=== PATIENT | female | born 1980 | race Caucasian/White ===

== ENCOUNTER 2020-04-19 08:39 | Emergency (ER) | payer SELFPAY ==
--- NOTE | 2020-04-19 09:14 | EDM.PDOC ---
ED HPI GENERAL MEDICAL PROBLEM - General Chief Complaint: Chest Pain Stated Complaint: CHEST PAIN GOES DOWN LEFT ARM Time Seen by Provider: 04/19/20 08:47 Source of Information: Reports: Patient History Limitations: Reports: No Limitations - History of Present Illness INITIAL COMMENTS - FREE TEXT/NARRATIVE: Patient notes atraumatic brief twinges of left anterior nonradiating chest pain lasting a second or two, at times up to a minute, beginning last night at rest 11 hours ago at home. This was preceded by migraine headache yesterday which is resolved. Patient today has noted over the last few hours associated feelings of tingling in her left cheek. 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 This is an contraindication to the triage nurse note. Patient's pain is not tearing or ripping Did not begin acutely. was not maximal at onset. Has not migrated. Pain is slightly worse if she breathes. Is unrelated to activity exertion or swallowing. Patient's had no runny nose, sore throat, cough, change in taste or smell. No diarrhea. No cold exposures. Cardiac risk factors: Grandfather had heart disease in his 50s. Parents and first degree relatives are otherwise healthy. Patient has family that works for EMS and recommended checked out today. Patient denies any history of DVT or PE. No recent surgeries, prolonged travel, calf pain, immobilization or hypercoagulable state. Patient does have an IUD in place has not had her period for 10 years. Patient remotely reports elevated borderline blood sugar. She denies hypertension, hypercholesterolemia, cocaine use. No history of coronary disease. Onset Date: 04/18/20 Location: Reports: Chest Quality: Reports: Other (t) Severity: Mild Improves with: Reports: None Worsens with: Reports: Breathing. Denies: Eating, Movement Context: Reports: Other Associated Symptoms: Denies: Cough, Fever/Chills, Shortness of Breath, Syncope, Weakness - Related Data Allergies Allergy/AdvReac Type Severity Reaction Status Date / Time Penicillins Allergy Rash Verified 04/19/20 08:55 Home Meds: Home Meds NK [No Known Home Meds] 04/19/20 [History] Past Medical History Cardiovascular History: Reports: None. Denies: Afib, Aneurysm, Angina, Blood Clots/VTE/DVT, CAD, Heart Failure, Heart Murmur, High Cholesterol, Hypertension, [place], SOB on Exertion, Syncope Respiratory History: Reports: None Gastrointestinal History: Reports: Irritable Bowel Syndrome DIAMOND PICKER History: Reports: LMP (Approximate): Other (See Below) (has IUD, last menses 10 years ago.) Psychiatric History: Reports: Anxiety - Past Surgical History HEENT Surgical History: Reports: Adenoidectomy, Tonsillectomy GI Surgical History: Reports: Hernia Repair/Other Female Surgical History: Reports: Section Social & Family History - Family History Cardiac: Reports: CAD (CAD in grandfather with early TX, no 1st degree relative with early CAD, TAD or dvt/PE). Denies: Aneurysm, Blood Clots/VTE/DVT, Cardiomyopathy Respiratory: Reports: None Neurological: Reports: CVA - Tobacco Use Tobacco Use Status *Q: Current Every Day Tobacco User Years of Tobacco use: 20 Packs/Tins Daily: 0.5 - Recreational Drug Use Recreational Drug Type: Reports: Marijuana/Hashish Recreational Drug Use Frequency: Weekly - Living Situation & Occupation Living situation: Reports: (here with .) ED ROS GENERAL - Review of Systems Review Of Systems: See Below Constitutional: Denies: Fever, Chills, Weakness, Weight Gain HEENT: Reports: No Symptoms Respiratory: Reports: Wheezing. Denies: Cough, Sputum, Hemoptysis Cardiovascular: Reports: Chest Pain, Palpitations. Denies: Claudication, Edema, Syncope Endocrine: Reports: No Symptoms GI/Abdominal: Reports: No Symptoms : Reports: No Symptoms Musculoskeletal: Reports: Back Pain, Leg Pain Skin: Reports: No Symptoms Neurological: Reports: Other (hand tingling when milking cows for years. ) Psychiatric: Reports: No Symptoms Hematologic/Lymphatic: Reports: No Symptoms, Easy Bruising Immunologic: Reports: No Symptoms Free Text/Narrative/Comment: no covid sx. ED EXAM, GENERAL - Physical Exam Exam: See Below Exam Limited By: No Limitations General Appearance: Alert, No Apparent Distress Eye Exam: Left Eye: Normal Inspection Ears: Normal External Exam Nose: Normal Inspection Throat/Mouth: Normal Inspection Head: Normocephalic Neck: Normal Inspection, Full Range of Motion. No: Carotid Bruit, Lymphadenopathy (R) Respiratory/Chest: No Respiratory Distress, Lungs Clear, Normal Breath Sounds, No Accessory Muscle Use, Chest Non-Tender Cardiovascular: Normal Peripheral Pulses, Regular Rate, Rhythm, No Edema, No Gallop, No JVD, No Murmur, No Rub. No: Friction Rub Peripheral Pulses: 2+: Radial (L), Radial (R) GI/Abdominal: Normal Bowel Sounds, Soft, Non-Tender, No Organomegaly, No Distention, No Mass Back Exam: Full Range of Motion Extremities: Normal Inspection, Normal Range of Motion, Non-Tender, No Pedal Edema, Normal Capillary Refill Neurological: Alert, Oriented, Normal Cognition, Normal Gait, No Motor/Sensory Deficits Psychiatric: Normal Affect, Normal Mood Skin Exam: Warm, Dry, Normal Color, No Rash. No: Cool, Cyanosis Lymphatic: No Adenopathy #1 Interpretation EKG Date: 04/19/20 Time: 09:11 Rhythm: NSR [place]: Normal P-Wave: Present QRS: Normal ST-T: Normal QT: Normal Comparison: NA - No Prior EKG Course - Vital Signs Text/Narrative:: Patient presents with atypical chest pain lasting few seconds left chest. Low PE risk based on history and exam. D-dimer negative. Patient symptoms been p resent for over greater than 8 hours and atypical with negative D-dimer making ACS extremely unlikely. She does have risk factors for CAD but her symptoms are not suggestive of ACS. Also not acute onset tearing, or ripping or suggestive thoracic or dissection. This is not pericarditis, myocarditis or esophageal rupture. There is no evidence of pneumonia, pneumothorax and her symptoms are not suggestive esophageal rupture. Patient is medically stable. In regards to her history of migraines and hand numbness this appears more chronic problem and not acute. Close follow primary care physician as appropriate. Return if worse, as discussed or progressive chest pain, diaphoresis, vomiting, bloody or black stools. Please see discharge instructions for a table chest pain/palpitations. Finally of note monitored in the ER showed no runs of ectopy or dysrhythmia. Last Recorded V/S: Last Vital Signs Temp 36.6 C 04/19/20 08:55 Pulse 78 04/19/20 08:55 Resp 12 04/19/20 10:00 BP 121/61 04/19/20 10:00 Pulse Ox 98 04/19/20 10:00 - Orders/Labs/Meds Orders: Active Orders 24 hr Category Date Time Status Saline Lock Insert [OM.PC] Stat Oth 04/19/20 09:28 Ordered EKG 12 Lead [EK] Stat Ther 04/19/20 08:53 Ordered Labs: Laboratory Tests 04/19/20 04/19/20 04/19/20 Range/Units 09:39 09:39 09:39 WBC 9.5 (4.5-11.0) K/uL RBC 5.22 (3.30-5.50) M/uL Hgb 15.8 H (12.0-15.0) g/dL Hct 48.1 H (36.0-48.0) % MCV 92 (80-98) fL MCH 30 (27-31) pg MCHC 33 (32-36) % Plt Count 287 (150-400) K/uL Neut % (Auto) 70 H (36-66) % Lymph % (Auto) 21 L (24-44) % [place] % (Auto) 7 H (2-6) % Eos % (Auto) 3 (2-4) % Baso % (Auto) 1 (0-1) % D-Dimer, Quantitative 363.14 (0.0-500.0) ng/mL Sodium (140-148) mmol/L Potassium (3.6-5.2) mmol/L Chloride (100-108) mmol/L Carbon Dioxide (21-32) mmol/L Anion Gap (5.0-14.0) mmol/L BUN (7-18) mg/dL Creatinine (0.6-1.0) mg/dL Est Cr Clr Drug Dosing mL/min Estimated GFR (MDRD) (>60) Glucose (74-106) mg/dL Calcium (8.5-10.1) mg/dL Troponin I < 0.017 (0.000-0.056) ng/mL HCG, Qual 04/19/20 04/19/20 Range/Units 09:39 09:40 WBC (4.5-11.0) K/uL RBC (3.30-5.50) M/uL Hgb (12.0-15.0) g/dL Hct (36.0-48.0) % MCV (80-98) fL MCH (27-31) pg MCHC (32-36) % Plt Count (150-400) K/uL Neut % (Auto) (36-66) % Lymph % (Auto) (24-44) % [place] % (Auto) (2-6) % Eos % (Auto) (2-4) % Baso % (Auto) (0-1) % D-Dimer, Quantitative (0.0-500.0) ng/mL Sodium 141 (140-148) mmol/L Potassium 4.1 (3.6-5.2) mmol/L Chloride 106 (100-108) mmol/L Carbon Dioxide 24 (21-32) mmol/L Anion Gap 10.8 (5.0-14.0) mmol/L BUN 11 (7-18) mg/dL Creatinine 0.9 (0.6-1.0) mg/dL Est Cr Clr Drug Dosing 68.73 mL/min Estimated GFR (MDRD) > 60 (>60) Glucose 121 H (74-106) mg/dL Calcium 9.2 (8.5-10.1) mg/dL Troponin I (0.000-0.056) ng/mL HCG, Qual Negative Meds: Medications Discontinued Medications Generic Name Dose Route Start Last Admin Trade Name Freq PRN Reason Stop Dose Admin Sodium Chloride 10 ml 04/19/20 09:27 04/19/20 10:12 Saline Flush FLUSH 10 ml ASDIRECTED PRN Administration Keep Vein Open Departure - Departure Time of Disposition: 11:12 Disposition: Home, Self-Care 01 Clinical Impression: Atypical chest pain Instructions: Nonspecific Chest Pain, Adult, [id number] Referrals: PCP,None [Primary Care Provider] - Forms: ED Department Discharge Additional Instructions: Your work-up today for atypical chest pain is reassuring. There is no signs of serious problems, your chest x-ray, laboratory studies, EKG, monitor worker and screening test for blood clots is negative and reassuring. At times a single ED visit cannot identify other medical problems. I do recommend close follow with your primary physician. In the meantime please return the emergency room if develop severe chest pain, persistent shortness of breath, vomiting, bloody or black stools. Return if arm weakness. Sepsis Event Note (ED) - Evaluation Sepsis Screening Result: No Definite Risk - Focused Exam Vital Signs: Vital Signs Temp Pulse Resp BP Pulse Ox 04/19/20 10:00 12 121/61 98 04/19/20 08:55 36.6 C 78 16 135/79 98 - My Orders Last 24 Hours: My Active Orders 04/19/20 08:53 EKG 12 Lead [EK] Stat 04/19/20 09:28 Saline Lock Insert [OM.PC] Stat - Assessment/Plan Last 24 Hours: My Active Orders 04/19/20 08:53 EKG 12 Lead [EK] Stat 04/19/20 09:28 Saline Lock Insert [OM.PC] Stat
[2020-04-19] MEDS ORDERED: Sodium Chloride 0.9% 10 ML Syringe FLUSH PRN (09:27)
--- NOTE | 2020-04-19 10:30 | CR ---
CHEST: Portable 04/19/2020 9: 59 AM CLINICAL HISTORY:Chest pain COMPARISON:None FINDINGS: The heart size, pulmonary vascularity and hilar structures are normal. No infiltrate effusion or pneumothorax is seen. IMPRESSION: No acute cardiopulmonary process.
== END 2020-04-19 11:28 | disposition home or self-care (01) ==
LOC: JP.ED 08:39
DX: R07.89 Other chest pain (principal); Z88.0 Allergy status to penicillin; Z72.0 Tobacco use
CPT/HCPCS: 36415; 71045; 71045-26; 80048; 84484; 84703; 85025; 85379; 93005; 99284; 99285-25

== ENCOUNTER 2024-11-20 08:27 | Observation (INO) | payer MEDICAID ==
[2024-11-20] MEDS ORDERED: Nitroglycerin 0.4 MG Tab.SL SL PRN (09:07)
[2024-11-20 09:15] LABS: BASOPHILS ABSOLUTE AUTO 0.19 K/uL (0.00-0.10); BASOPHILS PERCENT AUTO 1.2 % (0.1-1.3); EOSINOPHILS ABSOLUTE AUTO 0.51 K/uL (0.00-0.40); EOSINOPHILS PERCENT AUTO 3.1 % (0.0-5.4); IMMATURE GRAN ABSOLUTE AUTO 0.15 K/uL (0.00-0.23); IMMATURE GRAN PERCENT AUTO 0.9 % (0.0-0.7); LYMPHOCYTES ABSOLUTE AUTO 3.81 K/uL (0.8-3.3); LYMPHOCYTES PERCENT AUTO 23.4 % (11.4-47.7); MONOCYTES ABSOLUTE AUTO 0.96 K/uL (0.20-0.90); MONOCYTES PERCENT AUTO 5.9 % (3.3-12.6); NEUTROPHILS ABSOLUTE AUTO 10.67 K/uL (1.0-7.6); NEUTROPHILS PERCENT AUTO 65.5 % (40.0-78.1); PLATELET COUNT,PLT 420 K/uL (130-375); RED BLOOD CELL COUNT 4.51 M/uL (3.77-5.24); WHITE BLOOD CELL COUNT,WBC 16.3 K/uL (3.2-11.0)
[2024-11-20] MEDS: Sodium Chloride 0.9% 10 ML Syringe FLUSH PRN (09:17)
[2024-11-20 09:41] LABS: A/G RATIO 0.9 (1.2-2.2); ALANINE AMINOTRANSFERASE,ALT 69 U/L (12-78); ASPARTATE AMNIOTRANSFERASE,AST 41 U/L (15-37); BILIRUBIN TOTAL 0.4 mg/dL (0.2-1.0); BLOOD UREA NITROGEN,BUN 11 mg/dL (7-18); CARBON DIOXIDE,CO2 22 mmol/L (21-32); CHLORIDE,CL 107 mmol/L (100-108); CREATININE 1.1 mg/dL (0.6-1.0); EST CRCL DRUG DOSING (CG) 51.62 mL/min; ESTIMATED GFR 64 mL/min (>60); GLUCOSE RANDOM 249 mg/dL (74-106); POTASSIUM,K 4.0 mmol/L (3.6-5.2); PROTEIN TOTAL,TP 7.1 g/dL (6.4-8.2); SODIUM,NA 143 mmol/L (140-148); TROPONIN I HIGH SENSITIVITY 4.1 pg/mL (<=60.3)
[2024-11-20] MEDS: Iopamidol 612 MG/ML 100 ML Bottle IV PRN (10:35)
[2024-11-20] MEDS: Sodium Chloride 0.9% 10 ML Syringe FLUSH ONE (10:35)
[2024-11-20 10:56] LABS: LACTIC ACID 3.4 mmol/L (0.4-2.0)
[2024-11-20] MEDS ORDERED: Ondansetron 4 MG/2 ML SDV IV PRN (11:40)
[2024-11-20] MEDS: Ciprofloxacin in D5W 400 MG in Premix Bag 1 BAG IV SCH ×2 (12:11→23:59)
[2024-11-20 13:03] LABS: BASOPHILS ABSOLUTE AUTO 0.12 K/uL (0.00-0.10); BASOPHILS PERCENT AUTO 0.4 % (0.1-1.3); EOSINOPHILS ABSOLUTE AUTO 0.03 K/uL (0.00-0.40); EOSINOPHILS PERCENT AUTO 0.1 % (0.0-5.4); IMMATURE GRAN ABSOLUTE AUTO 0.39 K/uL (0.00-0.23); IMMATURE GRAN PERCENT AUTO 1.3 % (0.0-0.7); LYMPHOCYTES ABSOLUTE AUTO 2.19 K/uL (0.8-3.3); LYMPHOCYTES PERCENT AUTO 7.3 % (11.4-47.7); MONOCYTES ABSOLUTE AUTO 1.32 K/uL (0.20-0.90); MONOCYTES PERCENT AUTO 4.4 % (3.3-12.6); NEUTROPHILS ABSOLUTE AUTO 26.00 K/uL (1.0-7.6); NEUTROPHILS PERCENT AUTO 86.5 % (40.0-78.1); PLATELET COUNT,PLT 343 K/uL (130-375); RED BLOOD CELL COUNT 3.95 M/uL (3.77-5.24)
[2024-11-20 13:05] LABS: WHITE BLOOD CELL COUNT,WBC 30.1 K/uL (3.2-11.0)
[2024-11-20 18:32] LABS: APPEARANCE,URINE CLEAR (CLEAR); GLUCOSE,URINE NEGATIVE (NEGATIVE); OCCULT BLOOD,URINE NEGATIVE (NEGATIVE)
[2024-11-20 19:07] LABS: SQUAMOUS EPITHELIAL CELLS,UR OCCASIONAL /HPF
[2024-11-21 05:59] LABS: BASOPHILS ABSOLUTE AUTO 0.08 K/uL (0.00-0.10); BASOPHILS PERCENT AUTO 0.6 % (0.1-1.3); EOSINOPHILS ABSOLUTE AUTO 0.19 K/uL (0.00-0.40); EOSINOPHILS PERCENT AUTO 1.3 % (0.0-5.4); IMMATURE GRAN ABSOLUTE AUTO 0.10 K/uL (0.00-0.23); IMMATURE GRAN PERCENT AUTO 0.7 % (0.0-0.7); LYMPHOCYTES ABSOLUTE AUTO 2.84 K/uL (0.8-3.3); LYMPHOCYTES PERCENT AUTO 19.8 % (11.4-47.7); MONOCYTES ABSOLUTE AUTO 1.01 K/uL (0.20-0.90); MONOCYTES PERCENT AUTO 7.0 % (3.3-12.6); NEUTROPHILS ABSOLUTE AUTO 10.12 K/uL (1.0-7.6); NEUTROPHILS PERCENT AUTO 70.6 % (40.0-78.1); PLATELET COUNT,PLT 244 K/uL (130-375); RED BLOOD CELL COUNT 3.17 M/uL (3.77-5.24); WHITE BLOOD CELL COUNT,WBC 14.3 K/uL (3.2-11.0)
[2024-11-21 06:17] LABS: BLOOD UREA NITROGEN,BUN 8.0 mg/dL (7-18); CARBON DIOXIDE,CO2 24.0 mmol/L (21-32); CHLORIDE,CL 109.0 mmol/L (100-108); CREATININE 0.6 mg/dL (0.6-1.0); EST CRCL DRUG DOSING (CG) 94.63 mL/min; ESTIMATED GFR 113.0 mL/min (>60); GLUCOSE RANDOM 146.0 mg/dL (74-106); POTASSIUM,K 4.2 mmol/L (3.6-5.2); SODIUM,NA 142.0 mmol/L (140-148)
== END 2024-11-21 12:34 | disposition home or self-care (01) ==
LOC: JP.ED 08:27 → JP.ICU 11:36
PROVIDERS: ADMIT Surgery; ATTEND Surgery
DX: K25.9 Gastric ulcer, unspecified as acute or chronic, without hemorrhage or perforation (principal); I48.91 Unspecified atrial fibrillation; I11.0 Hypertensive heart disease with heart failure; I50.9 Heart failure, unspecified; I25.10 Atherosclerotic heart disease of native coronary artery without angina pectoris; E87.20 Acidosis, unspecified; D72.829 Elevated white blood cell count, unspecified; R73.9 Hyperglycemia, unspecified; E66.01 Morbid (severe) obesity due to excess calories; Z68.42 Body mass index [BMI] 45.0-49.9, adult; Z88.0 Allergy status to penicillin; Z79.899 Other long term (current) drug therapy; Z87.891 Personal history of nicotine dependence
CPT/HCPCS: 36415; 71045; 74177; 80048; 80053; 81001; 83036; 83605; 83690; 84484; 84703; 85025; 87040; 93005; 96361; 96365; 96366; 96375; 96376; 99285; A9270; G0378; J0696; J0744; J1790; J2270; J2470; J7030; Q9967